=== PATIENT | female | born 1945 | race Caucasian/White ===

== ENCOUNTER 2019-03-31 17:57 | Emergency (ER) | payer OTHER ==
[~2019-03-31] VITALS: Ht 162.6 cm; Wt 68.0 kg
[2019-03-31] MEDS ORDERED: DIAZ5 PO (19:56)
[2019-03-31] MEDS ORDERED: OXYC5 PO (19:57)
[2019-03-31] MEDS ORDERED: CYCL10 PO (19:57)
== END 2019-03-31 21:07 | disposition home or self-care (01) ==
LOC: ER 17:57
DX: S09.90XA Unspecified injury of head, initial encounter (principal); M54.2 Cervicalgia; W18.30XA Fall on same level, unspecified, initial encounter
CPT/HCPCS: 70450; 72125; 96360; 99284-25; A9270-GY; J7030

== ENCOUNTER 2020-12-11 06:29 | Day surgery (SDC) | payer OTHER ==
[~2020-12-11] VITALS: Ht 167.6 cm; Wt 58.0 kg
[~2020-12-11 06:29] MED LIST: AREDS 2 PO; CITA20 PO; CYCL10 PO; DIAZ5 PO; DORZOLAMIDE-TIM10 ML RIGHTEYE; GALA4 PO; LIONS MANE PO; MULVITA PO; OXYC5 PO; PRAV20 PO; ROCKLATAN 0.022.5 M1 RIGHTEYE; VITAMIN D310 MC4 PO; Vitamin E400 UNI4 PO; [UNRECOGNIZED DRUG - CODE]; [UNRECOGNIZED DRUG - OTHER] PO
--- NOTE | 2020-12-11 07:31 | NUR ---
PT TO SDS VIA WC, ESCORTED BY CAREGIVER. Patient confirms NPO status and agrees with scheduled surgery. History, Chart, Medications and Allergies reviewed before start of procedure. Lungs clear T/O to Auscultation. Patient reports completing Chlorhexadine shower X2 prior to admission to hospital. BS DIET CONTROLLED, NO BS PER MD.
--- NOTE | 2020-12-11 11:37 | NUR ---
ARRIVED FROM PACU VIA BED, AWAKE, A&OX3, DENIES ANY PAIN OR ANY DISCOMFORT AT THIS TIME, PT ABLE TO WIGGLE TOES VERY SLIGHTLY, HX ALZHEIMERS, NIECE AT BEDSIDE, R HIP AQUACEL DSG C/D/I, CONT. TO MONITOR FOR ANY CHANGES, MEDICATE FOR PAIN PRN.
--- NOTE | 2020-12-11 17:08 | NUR ---
SUMMARY WORKED WITH PHYSChris TERRELL, UP TO RECLINER CHAIR, STATES PT AMBULATED WELL BUT FORGETS SAFETY PRECAUTIONS, DENIES ANY PAIN, VOIDED WHILE IN THE BATHROOM, DSG C/D/I, NO ACUTE CHANGES THIS SHIFT.
--- NOTE | 2020-12-12 03:55 | NUR ---
SHIFT SUMMARY: PT POD #1 FOR RT NEAL. PT A&O X4 BUT FORGETFUL AT TIMES. PT PULLED OFF AQUACEL DRESSING ONCE. WOUND CLEANSED AND NEW AQUACEL APPLIED. PAIN BEING MANAGED WITH SCHEDULED TORADOL AND TYLENOL. RATING PAIN 2-3/10 ON PAIN SCALE. PT AMBULATING WITH MINIMAL ASSIST. PT NEEDS FREQ REMINDERS ON HIP PRECAUTIONS. PLAN FOR PHYSICAL THERAPY TODAY AND POSSIBLE DISCHARGE HOME.
[2020-12-12 05:13] LABS: BASOPHILS ABSOLUTE AUTO 0.02 K/mm3 (0.00-0.23); BASOPHILS PERCENT AUTO 0 % (0-2); EOSINOPHILS ABSOLUTE AUTO 0.06 K/mm3 (0.00-0.68); EOSINOPHILS PERCENT AUTO 1 % (0-6); Hematocrit 30.6 % (33.0-51.0); Hemoglobin 9.6 g/dL (11.5-16.0); IMMATURE GRAN ABSOLUTE AUTO 0.04 K/mm3 (0.00-0.10); IMMATURE GRAN PERCENT AUTO 0 % (0-1); LYMPHOCYTES ABSOLUTE AUTO 1.21 K/mm3 (0.84-5.20); LYMPHOCYTES PERCENT AUTO 13 % (21-46); MONOCYTES PERCENT AUTO 11 % (4-13); Mean Corpuscular HGB 28.6 pg (26.0-34.0); Mean Corpuscular HGB Conc 31.4 g/dL (31.5-36.5); Mean Corpuscular Volume 91 fL (80-100); Mean Platelet Volume 9.3 fL (9.1-12.4); NEUTROPHILS ABSOLUTE AUTO 7.23 K/mm3 (1.96-9.15); NEUTROPHILS PERCENT AUTO 75 % (41-73); Platelet Count 225 K/mm3 (150-400); RDW Coefficient Variation 13.8 % (11.7-14.2); RDW Standard Deviation 46.8 fL (35.1-46.3); Red Blood Cell Count 3.36 M/mm3 (3.80-5.20); White Blood Cell Count 9.66 K/mm3 (4.00-11.30)
[2020-12-12 05:54] LABS: Bun/Creatinine Ratio 24.1 (12.0-20.0); Calcium, Blood 8.4 mg/dL (8.5-10.1); Creatinine, Blood 1.12 mg/dL (0.40-1.00); Potassium, Blood 3.9 mmol/L (3.5-5.5)
[2020-12-12] MEDS ORDERED: Percocet 5-3251 EACH PO (08:19)
[2020-12-12] MEDS ORDERED: ASPI81CH PO (08:21)
--- NOTE | 2020-12-12 12:57 | NUR ---
Advance Directive (AD) education/Spiritual care visit conducted. Patient tells me of her interest in filling out an AD. I hand her an AD booklet and go over the purpose, the importance, the different sections of the booklet and the filing process of the AD. Patient demonstrates a clear comprehension of the material and states that she will fill it out and return it to her PCP. Patient also shares about the hardships she has been having with the of her spouse, last January, the loss of her house and the medical issues she is dealing with. Patient states that she has been extremely stressed. I normalize her experience, and provide therapeutic listening, grief support, anxiety containment and prayer. Patient responds well and shows signs of reduced stress. I will continue to remain available to patient and family.
--- NOTE | 2020-12-12 13:12 | NUR ---
Patient is sitting on a chair and alert. Patient tells me about the success of the surgery and the plan to live with her niece, Brigid, (who is present for the visit). Patient then talks about highlights of her life growing up until present and about her belief system that is a mix of beliefs and Restorationist beliefs. I normalize patient's experience, and provide encouragement and a calming presence. Patient and Brigid responds well and voice appreciation for the visit.
--- NOTE | 2020-12-12 14:00 | NUR ---
DISCHARGE SUMMARY PT POD #1 FOR R TOTAL HIP. PT WORKED WITH P.T. TODAY AND WAS CLEARED. PT HAS HOME HEALTH UPON DISCHARGE AND IS GOING HOME TO TEMPORARILY LIVE WITH A FAMILY MEMBER DUE TO THE NUMBER OF STAIRS IN HER HOUSE. IV DC'D WNL. WENT OVER DC EDUCATION WITH PT AND SHE VERBALIZED UNDERSTANDING.
== END 2020-12-12 13:25 | disposition home health service (06) ==
LOC: ORSCMMR 06:29 → PRE IP 07:30 → EDSTATUS 10:30 → SURS 10:37 → ORSCMMR 12-12 13:25 → SURS 12-12 13:25
PROVIDERS: Orthopaedic Surgery
PROC: 0SR904A Replacement of Right Hip Joint with Ceramic on Polyethylene Synthetic Substitute, Uncemented, Open Approach (ICD-10-PCS; principal; 2020-12-11 07:30)
DX: M16.11 Unilateral primary osteoarthritis, right hip (principal); G30.9 Alzheimer's disease, unspecified; F02.80 Dementia in other diseases classified elsewhere, unspecified severity, without behavioral disturbance, psychotic disturbance, mood disturbance, and anxiety; F41.9 Anxiety disorder, unspecified; F32.9 Major depressive disorder, single episode, unspecified; E11.9 Type 2 diabetes mellitus without complications; E78.5 Hyperlipidemia, unspecified; H40.9 Unspecified glaucoma; Z87.891 Personal history of nicotine dependence; Z79.899 Other long term (current) drug therapy; Z88.5 Allergy status to narcotic agent; Z88.1 Allergy status to other antibiotic agents
CPT/HCPCS: 36415; 72170; 80048; 83735; 85025; 97110; 97116; 97162; 97530; A9270; A9270-GY; C1713; C1776; J0171; J0690; J0735; J1100; J1885; J2250; J2405; J2704; J2795; J3010; J7120

== ENCOUNTER 2021-07-04 17:05 | Emergency (ER) | payer OTHER ==
[~2021-07-04] VITALS: Ht 167.6 cm; Wt 64.9 kg
[~2021-07-04 17:05] MED LIST changes: +ASPI81CH PO; +Percocet 5-3251 EACH PO
[2021-07-04 18:07] LABS: BASOPHILS ABSOLUTE AUTO 0.06 K/mm3 (0.00-0.23); BASOPHILS PERCENT AUTO 1 % (0-2); EOSINOPHILS PERCENT AUTO 5 % (0-6); Hematocrit 39.4 % (33.0-51.0); Hemoglobin 12.7 g/dL (11.5-16.0); IMMATURE GRAN ABSOLUTE AUTO 0.05 K/mm3 (0.00-0.10); IMMATURE GRAN PERCENT AUTO 1 % (0-1); LYMPHOCYTES ABSOLUTE AUTO 1.66 K/mm3 (0.84-5.20); LYMPHOCYTES PERCENT AUTO 20 % (21-46); MONOCYTES ABSOLUTE AUTO 0.97 K/mm3 (0.16-1.47); MONOCYTES PERCENT AUTO 12 % (4-13); Mean Corpuscular HGB 29.2 pg (26.0-34.0); Mean Corpuscular HGB Conc 32.2 g/dL (31.5-36.5); Mean Corpuscular Volume 91 fL (80-100); NEUTROPHILS ABSOLUTE AUTO 5.02 K/mm3 (1.96-9.15); NEUTROPHILS PERCENT AUTO 62 % (41-73); Platelet Count 294 K/mm3 (150-400); RDW Coefficient Variation 15.1 % (11.7-14.2); Red Blood Cell Count 4.35 M/mm3 (3.80-5.20); White Blood Cell Count 8.16 K/mm3 (4.00-11.30)
[2021-07-04 18:29] LABS: Troponin I <0.015 ng/mL (0.000-0.040)
[2021-07-04 18:31] LABS: Alanine Aminotransfer (ALT/SGP 19 U/L (12-78); Albumin, Blood 3.6 g/dL (3.4-5.0); Albumin/Globulin Ratio 0.9 (0.8-1.8); Alk Phos 70 U/L (50-136); Anion Gap 5 mmol/L (6-16); Aspartate Aminotrans (AST/SGOT 18 U/L (12-37); Bilirubin, Total 0.2 mg/dL (0.1-1.0); Blood Urea Nitrogen 35 mg/dL (8-24); Bun/Creatinine Ratio 32.4 (12.0-20.0); CO2, Blood 29 mmol/L (21-32); Chloride, Blood 105 mmol/L (98-108); Creatinine, Blood 1.08 mg/dL (0.40-1.00); Globulin, Blood 3.8 g/dL (2.2-4.0); Glomerular Filtration Rate 49 (60-); Glucose, Blood 68 mg/dL (70-99); Potassium, Blood 4.2 mmol/L (3.5-5.5); Sodium, Blood 139 mmol/L (136-145); Total Protein, Blood 7.4 g/dL (6.4-8.2)
[2021-07-04] MEDS ORDERED: SENNA LAXATIVE8.6 MG PO (20:49)
== END 2021-07-04 21:24 | disposition home or self-care (01) ==
LOC: ER 17:05
PROVIDERS: Physician Assistant
DX: K21.9 Gastro-esophageal reflux disease without esophagitis (principal); Z79.899 Other long term (current) drug therapy; Z88.8 Allergy status to other drugs, medicaments and biological substances; Z87.891 Personal history of nicotine dependence
CPT/HCPCS: 36415; 71046; 80053; 82947; 84484; 85025; 93005; 93010; 99284-25

== ENCOUNTER → 2023-01-05 | Outpatient (CLI) | payer OTHER ==
[~2023-01-05] MED LIST changes: +SENNA LAXATIVE8.6 MG PO
== END ==
LOC: LAB SHORT 12:22 → PLD 12:22
DX: M89.8X7 Other specified disorders of bone, ankle and foot (principal); L97.509 Non-pressure chronic ulcer of other part of unspecified foot with unspecified severity; I70.213 Atherosclerosis of native arteries of extremities with intermittent claudication, bilateral legs; M77.41 Metatarsalgia, right foot; M79.671 Pain in right foot; D75.89 Other specified diseases of blood and blood-forming organs
CPT/HCPCS: 88305; 88311

== ENCOUNTER → 2023-03-02 | Outpatient (CLI) | payer OTHER ==
[2023-03-02 15:49] LABS: Source, Urine Clean Catch
[2023-03-02 17:03] LABS: Appearance, Urine Clear (Clear); Bilirubin, Urine Neg (Neg); Blood, Urine Neg (Neg); Color, Urine Yellow (P-Yellow); Glucose Qualitative, Urine Neg (Neg); Ketones, Urine Neg (Neg); Leukocyte Esterase, Urine 3+ (Neg); Nitrite, Urine Neg (Neg); Protein, Urine 1+ (Neg); Urobilinogen, Urine NORM (Normal)
[2023-03-02 17:38] LABS: Bacteria Many /hpf; Hyaline Casts 0-2 /lpf (0-2); Squamous Epithelial Cells Few /hpf (Few); Triple Phosphate Crystals Rare /hpf
== END | disposition home or self-care (01) ==
LOC: LAB SHORT 15:47 → LAB 15:47
PROVIDERS: Family Medicine
DX: N39.0 Urinary tract infection, site not specified (principal)
CPT/HCPCS: 81001; 87077; 87086; 87186